=== PATIENT | male | born 1970 | race African-American/Black ===

== ENCOUNTER 2016-12-02 09:47 | Emergency (ER) | payer OTHER ==
[~2016-12-02] VITALS: Ht 185.4 cm; Wt 97.5 kg
[2016-12-02 09:48] VITALS: BP 156/90; PULSE 72; RESP 20; TEMP 98.8; O2SAT 98
--- NOTE | 2016-12-02 10:26 | PD ---
HPI Chief Complaint: Respiratory Distress Time Seen by Provider: 10:12 Travel History International Travel<30 days: No Contact w/Intl Traveler<30days: No Traveled to known affect area: No History of Present Illness HPI The patient is a 46-year-old [place] male who presents to the emergency department for cough and cold symptoms. 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 The patient states he works under a fan for 8-10 hours per day, feels like he was inhaling dust from the event. The patient then developed a sore throat, congestion, and subsequently a dry and nonproductive cough. The patient now complains of bilateral chest tightness with shortness of breath, feels like he has difficulty taking a deep breath. The patient states his symptoms are improved when he returns home, however, when he is at work and sitting under the fan, his symptoms are worse. The patient states he exercises on a regular basis and has no exertional chest pain or shortness of breath. The patient does have a history of hypertension, hyperlipidemia, and diabetes for which she takes metformin. The patient denies any history of coronary artery disease, tobacco use, or significant early family medical history for coronary artery disease. The patient iterates that his symptoms are worse at work and improved at home, he has no exertional shortness of breath during exercise. PFSH Past Medical History High Cholesterol: Yes Diabetes: Yes Patient Takes Glucophage: Yes Hypertension: Yes Tetanus Vaccination: > 5 Years Past Surgical History Surgical History: No Previous Surgery Social History Alcohol Use: No Tobacco Use: No Substance Use: No Allergies-Medications (Allergen,Severity, Reaction): Coded Allergies: No Known Allergies (Unverified , 12/02/16) Review of Systems Except as stated in HPI: all other systems reviewed are Neg HENT: Positive: Sore Throat, Congestion, No: Lightheadedness Cardiovascular: Positive: Chest Pain or Discomfort, No: Diaphoresis, Dyspnea on exertion Respiratory: Positive: Cough, Shortness of Breath Gastrointestinal: No: Nausea, Vomiting, Abdominal Pain Musculoskeletal: No: Edema Physical Exam Narrative GENERAL: Awake, alert, pleasant 46-year-old male who appears his stated age and is in no acute respiratory distress. SKIN: Focused skin assessment warm/dry. HEAD: Atraumatic. Normocephalic. EYES: Pupils equal and round. No scleral icterus. No injection or drainage. ENT: No nasal bleeding or discharge. Oropharynx reveals erythema but no exudate. NECK: Trachea midline. No JVD. CARDIOVASCULAR: Regular rate and rhythm. No murmur appreciated. RESPIRATORY: No accessory muscle use. Clear to auscultation. Breath sounds equal bilaterally. GASTROINTESTINAL: Abdomen soft, non-tender, nondistended. No rebound tenderness. MUSCULOSKELETAL: No obvious deformities. No clubbing. No cyanosis. No edema. NEUROLOGICAL: Awake and alert. No obvious cranial nerve deficits. Motor grossly within normal limits. Normal speech. PSYCHIATRIC: Appropriate mood and affect; insight and judgment normal. Data Data Last Documented VS Vital Signs Date Time Temp Pulse Resp B/P Pulse Ox O2 Delivery O2 Flow Rate FiO2 12/02/16 09:48 98.8 72 20 156/90 98 Room Air Orders Chest, Single Ap (12/02/16 ) Electrocardiogram (12/02/16 ) [facility] Medical Decision Making Medical Screen Exam Complete: Yes Emergency Medical Condition: Yes Medical Record Reviewed: Yes Interpretation(s) EKG reveals normal sinus rhythm with sinus arrhythmia. Inverted T waves in lead 3. Last Impressions Chest X-Ray 12/02/16 0000 Signed Impressions: Service Date/Time: Friday, December 02, 2016 10:32 - CONCLUSION: No acute disease. Keven Wen Jr., MD Differential Diagnosis Differential diagnosis includes pneumonitis, allergic reaction, URI, allergies, acute coronary syndrome, pneumonia, bronchitis. Narrative Course EKG was ordered and interpreted. Chest x-ray was obtained. I had a discussion with patient regarding possibilities including allergic reaction, pneumonitis, and acute coronary syndrome. The patient does not believe it is heart related, states he has no symptoms when he is at home and has no symptoms while exercising, his symptoms are worse at work and her improved upon returning home. The patient states he has spoke with the staff where he is employed about cleaning the vent. EKG is unremarkable except for sinus arrhythmia. Chest x-rays negative. The patient is reevaluated at 10:53 AM. The patient is currently asymptomatic. We once again discussed exertional symptoms, he exercises daily without any exertional symptoms. Therefore, patient was discharged on Medrol Dosepak and Claritin, this may be allergy related with secondary pneumonitis. Diagnosis Primary Impression: Pneumonitis Patient Instructions: General Instructions Additional Instructions: Please provide the patient a copy of his chest x-ray results at discharge. Medrol Dosepak and Claritin as directed. Monitor blood sugars while on Medrol Dosepak. If you develop exertional symptoms with exercise or symptoms persist, return for serial cardiac enzymes and 23 hour observation in the chest pain Center. Med/Other Pt SpecificInfo: Prescription(s) given Scripts Loratadine (Claritin)10 Mg Cap10 Mg PO DAILY #14 CAP Ref 0 Prov:Aron Harrell MD 12/02/16 Methylprednisolone Dosepak (Medrol Dosepak)4 Mg Dspk4 Mg PO DIRECTED #1 DSPK Ref 0 Per Pharmacist direction Prov:Aron Harrell MD 12/02/16 Disposition: 01 DISCHARGE HOME Condition: Stable Aron Harrell MD December 02, 2016 10:26
--- NOTE | 2016-12-02 10:42 | RADRPT ---
EXAM DATE/TIME: 12/02/2016 10:32 [facility] COMPARISON: No previous studies available for comparison. INDICATIONS : Patient states shortness of breath. MEDICAL HISTORY : Diabetes mellitus type II. Hypertension SURGICAL HISTORY : None. ENCOUNTER: Initial ACUITY: 2 days PAIN SCORE: 0/10 LOCATION: Bilateral chest FINDINGS: A single view of the chest demonstrates the lungs to be symmetrically aerated without evidence of mas s, infiltrate or effusion. The cardiomediastinal contours are unremarkable. Osseous structures are intact. CONCLUSION: No acute disease. Keven Wen Jr., MD on December 02, 2016 at 10:40 Board Certified Radiologist. This report was verified electronically.
[2016-12-02] MEDS ORDERED: MEDR4PAK PO (10:58)
[2016-12-02] MEDS ORDERED: CLAR10CA3 PO (10:58)
--- NOTE | 2016-12-02 16:33 | EKG ---
Date Performed: 12/02/2016 Time Performed: 10:24:46 PTAGE: 46 years EKG: Sinus rhythm WITH SINUS ARRHYTHMIA NONSPECIFIC T-WAVE ABNORMALITY BORDERLINE ECG NO PREVIOUS TRACING DOCTOR: Jay Deutsch Interpretating Date/Time 12/02/2016 16:30:46
== END 2016-12-02 11:24 | disposition home or self-care (01) ==
LOC: NEPD 09:47
DX: J67.9 Hypersensitivity pneumonitis due to unspecified organic dust (principal); R94.31 Abnormal electrocardiogram [ECG] [EKG]; I10 Essential (primary) hypertension; E78.5 Hyperlipidemia, unspecified; E11.9 Type 2 diabetes mellitus without complications; Z79.84 Long term (current) use of oral hypoglycemic drugs
CPT/HCPCS: 71010; 93005

== ENCOUNTER 2017-07-10 14:44 | Emergency (ER) | payer OTHER ==
[~2017-07-10] VITALS: Ht 185.4 cm; Wt 100.0 kg
[~2017-07-10 14:44] MED LIST: CLAR10CA3 PO; MEDR4PAK PO
[2017-07-10 14:46] VITALS: BP 155/81; PULSE 73; RESP 16; TEMP 98.6; O2SAT 98
[2017-07-10] MEDS ORDERED: SIMV20TA PO (15:01)
[2017-07-10] MEDS ORDERED: METF1000 PO (15:01)
[2017-07-10] MEDS ORDERED: AMLO5TAB2 PO (15:01)
[2017-07-10] MEDS ORDERED: ROBA750T PO (15:04)
[2017-07-10] MEDS ORDERED: IBUP-232 PO (15:04)
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
[2017-07-10] MEDS ORDERED: METHOCARBAMOL 500 MG TAB PO SCH (15:15)
[2017-07-10] MEDS ORDERED: IBUPROFEN 600 MG TAB PO ONE (15:15)
== END 2017-07-10 15:43 | disposition home or self-care (01) ==
LOC: NEPK 14:44
DX: S16.1XXA Strain of muscle, fascia and tendon at neck level, initial encounter (principal); R51 Headache; E78.00 Pure hypercholesterolemia, unspecified; E11.9 Type 2 diabetes mellitus without complications; I10 Essential (primary) hypertension; V43.52XA Car driver injured in collision with other type car in traffic accident, initial encounter; Y92.414 Local residential or business street as the place of occurrence of the external cause; Z79.84 Long term (current) use of oral hypoglycemic drugs
CPT/HCPCS: 99283

== ENCOUNTER 2017-09-28 18:05 | Emergency (ER) | payer OTHER ==
[~2017-09-28] VITALS: Ht 185.4 cm; Wt 104.5 kg
[~2017-09-28 18:05] MED LIST changes: +AMLO5TAB2 PO; -CLAR10CA3 PO; +IBUP-232 PO; -MEDR4PAK PO; +METF1000 PO; +ROBA750T PO; +SIMV20TA PO
[2017-09-28 18:15] VITALS: BP 177/90; PULSE 97; RESP 22; TEMP 100; O2SAT 95
[2017-09-28 19:54] VITALS: BP 155/92; PULSE 80; RESP 18; TEMP 101.8; O2SAT 97
--- NOTE | 2017-09-28 20:31 | PD ---
HPI Chief Complaint: Cold / Flu Symptoms Time Seen by Provider: 19:43 Travel History International Travel<30 days: Yes Contact w/Intl Traveler<30days: Yes Name of Country Traveled to: [facility] RETURNED 09/21/17 Traveled to known affect area: Yes History of Present Illness HPI This patient complains of fever and malaise. Duration is 2 days. Severity is moderate. He has no vomiting or diarrhea. He has had a bit of cough and some muscle aches. No shortness of breath or chest pain. Symptoms have no alleviating factors. PFSH Past Medical History High Cholesterol: Yes Diabetes: Yes Patient Takes Glucophage: Yes (METFORMIN) Hypertension: Yes Past Surgical History Surgical History: No Previous Surgery Social History Alcohol Use: Yes ("SOCIALLY") Tobacco Use: No Substance Use: No Allergies-Medications (Allergen,Severity, Reaction): Coded Allergies: No Known Allergies (Unverified Adverse Reaction, Unknown, 09/28/17) Reported Meds & Prescriptions Reported Meds & Active Scripts Active Ibuprofen 600 Mg Tab 600 Mg PO Q8HR PRN Reported Simvastatin 20 Mg Tab 20 Mg PO DAILY Amlodipine (Amlodipine Besylate) 5 Mg Tab 5 Mg PO DAILY Metformin (Metformin HCl) 1,000 Mg Tab 1,000 Mg PO BIDPC Review of Systems General / Constitutional: Positive: Fever HENT: No: Headaches Cardiovascular: No: Chest Pain or Discomfort Respiratory: Positive: Cough Physical Exam Narrative GENERAL: Well-nourished, well-developed patient. SKIN: Focused skin assessment warm/dry. HEAD: Normocephalic. EYES: No scleral icterus. No injection or drainage. NECK: Supple, trachea midline. No JVD or lymphadenopathy. No meningeal signs CARDIOVASCULAR: Regular rate and rhythm without murmurs, gallops, or rubs. RESPIRATORY: Breath sounds equal bilaterally. No accessory muscle use. GASTROINTESTINAL: Abdomen soft, non-tender, nondistended. MUSCULOSKELETAL: No cyanosis, or edema. BACK: Nontender without obvious deformity. No CVA tenderness. Data Data Last Documented VS Vital Signs Date Time Temp Pulse Resp B/P (MAP) Pulse Ox O2 Delivery O2 Flow Rate FiO2 09/28/17 19:54 101.8 80 18 155/92 (113) 97 Room Air MDM Medical Decision Making Medical Screen Exam Complete: Yes Emergency Medical Condition: Yes Medical Record Reviewed: Yes Differential Diagnosis Flu syndrome, bronchitis, URI Narrative Course I have reviewed the patient's electronic medical record. Presentation here is consistent with an acute viral or flu-type syndrome He has low-grade temp but no objective findings on exam beyond nasal rhinorrhea No meningeal signs and clear lungs and soft benign nontender abdomen Does not look septic or toxic Supportive care discussed but I don't think extensive emergency room workup would yield a change in plan at this time Should follow-up with primary care and return if he worsens Diagnosis Primary Impression: Flu syndrome Additional Instructions: The patient was advised to follow up with their physician and return if they worsen. Med/Other Pt SpecificInfo: Other Disposition: 01 DISCHARGE HOME Condition: Stable Rylan Williamson MD Sep 28, 2017 20:31
== END 2017-09-28 20:43 | disposition home or self-care (01) ==
LOC: NEPD 18:05
DX: J11.1 Influenza due to unidentified influenza virus with other respiratory manifestations (principal); E78.00 Pure hypercholesterolemia, unspecified; E11.9 Type 2 diabetes mellitus without complications; I10 Essential (primary) hypertension
CPT/HCPCS: 99281